=== PATIENT | male | born 1930 | race Caucasian/White ===

== ENCOUNTER 2016-07-18 13:09 | Emergency (ER) | payer MEDICAID, MEDICARE ==
[2016-07-18 13:12] VITALS: BP 141/53
--- NOTE | 2016-07-18 14:14 | EDM.PDOC ---
[id number] [facility] [place] [facility] Time Seen by Provider: 07/18/16 13:30 Source of Information: Reports: Patient, EMS, Provider History Limitations: Reports: No limitations - History of Present Illness INITIAL COMMENTS - FREE TEXT/NARRATIVE: 85-year-old male arrived by ambulance from the [facility] as he apparently had a hypoglycemic episode in the clinic. We have no other history because the clinic did not call. According to EMS the patient was stable in route, normal glucometers and no complaints. This is after he received some oral glucose at the clinic. I asked the patient why he was here and what we could do for him and he said "let him go home he's fine". Onset: unknown/unsure Associated Symptoms: Reports: denies other symptoms Left Hip Pain Score (Numeric/FACES): 2 - Related Data Allergies Allergy/AdvReac Type Severity Reaction Status Date / Time Penicillins Allergy Cannot Verified 07/18/16 13:10 Remember Home Meds: Home Meds Acetaminophen/oxyCODONE [Percocet 325-5 MG] 1 tab PO DAILY 07/18/16 [History] Albuterol/Ipratropium [Combivent Respimat] 1 puff INH QID 07/18/16 [History] Azithromycin [Azithromycin] 1 tab PO ASDIRECTED 07/18/16 [History] Digoxin [Digoxin] 125 mcg PO Q48H 07/18/16 [History] Docusate Sodium [Doc-Q-Lace] 100 mg PO DAILY 07/18/16 [History] Ethambutol HCl [Myambutol] 1,600 mg PO ASDIRECTED 07/18/16 [History] Folic Acid 1 mg PO DAILY 07/18/16 [History] Furosemide [Furosemide] 40 mg PO DAILY 07/18/16 [History] Gabapentin [Neurontin] 600 mg PO TID 07/18/16 [History] Insulin Detemir [Levemir] 45 units SUBCNJ BEDTIME 07/18/16 [History] Ketoconazole [Nizoral 2% Shampoo] 1 appful TOP Q4HR 07/18/16 [History] Levothyroxine Sodium [Synthroid] 75 mcg PO DAILY 07/18/16 [History] Liraglutide [Victoza] 1.2 mg SUBCNJ DAILY 07/18/16 [History] Polyethylene Glycol 3350 [MiraLAX] 17 g PO DAILY 07/18/16 [History] Ranitidine [Zantac] 150 mg PO BID 07/18/16 [History] Rifampin [Rifampin] 600 mg PO ASDIRECTED 07/18/16 [History] Sennosides [Senna] 8.6 mg PO ASDIRECTED 07/18/16 [History] Sertraline [Zoloft] 100 mg PO DAILY 07/18/16 [History] Simvastatin [Simvastatin] 40 mg PO DAILY 07/18/16 [History] Terazosin [Hytrin] 5 mg PO DAILY 07/18/16 [History] Warfarin Sodium [Jantoven] 5 mg PO ASDIRECTED 07/18/16 [History] Zolpidem [Ambien] 5 mg PO BEDTIME 07/18/16 [History] fentaNYL [Fentanyl] 50 mcg TOP Q72H 07/18/16 [History] metFORMIN [Glucophage] 500 mg PO BID 07/18/16 [History] traZODone 25 mg PO DAILY 07/18/16 [History] Past Medical History Cardiovascular History: Reports: Afib, Heart Failure, Other (see below) Other Cardiovascular History: abdominal arotic athrosclorosis. Arotic aneurysm Respiratory History: Reports: COPD, PE Gastrointestinal History: Reports: Chronic constipation Musculoskeletal History: Reports: Back pain, chronic Other Musculoskeletal History: chronic left hip pain. Neurological History: Reports: Other (see below) Other Neuro History: isomnia Endocrine/Metabolic History: Reports: Diabetes, type II Hematologic History: Reports: Iron deficiency, Other (see below) Other Hematologic History: folate deficiency Social & Family History - Tobacco Use Smoking Status *Q: Unknown Ever Smoked - Caffeine Use Caffeine Use: Reports: Coffee - Recreational Drug Use Recreational Drug Use: No ED ROS GENERAL - Review of Systems Review Of Systems: See Below Constitutional: Denies: fever, chills Respiratory: Denies: Shortness of Breath Cardiovascular: Denies: Chest pain GI/Abdominal: Denies: Abdominal pain, Nausea, Vomiting Neurological: Denies: Headache Psychiatric: Denies: Anxiety ED EXAM, GENERAL - Physical Exam Exam: See Below Exam Limited By: No limitations General Appearance: alert, no apparent distress Eye Exam: bilateral eye: EOMI Respiratory/Chest: no respiratory distress, lungs clear Cardiovascular: regular rate, rhythm GI/Abdominal: soft, non tender Neurological: alert, no motor/sensory deficits Psychiatric: normal affect, normal mood Skin Exam: Warm, Dry Course - Vital Signs Last Recorded V/S: Last Vital Signs Temp 97.7 F 07/18/16 13:14 Pulse 72 07/18/16 13:14 Resp 15 07/18/16 13:14 BP 141/53 H 07/18/16 13:14 Pulse Ox 99 07/18/16 13:14 - Orders/Labs/Meds Labs: Laboratory Tests 07/18/16 07/18/16 Range/Units 13:58 13:58 WBC 13.4 H (4.5-11.0) K/uL RBC 3.95 L (4.30-5.90) M/uL Hgb 12.3 (12.0-15.0) g/dL Hct 38.2 L (40.0-54.0) % MCV 97 (80-98) fL MCH 31 (27-31) pg MCHC 32 (32-36) % Plt Count 272 (150-400) K/uL Neut % (Auto) 73 H (36-66) % Lymph % (Auto) 16 L (24-44) % [place] % (Auto) 9 H (2-6) % Eos % (Auto) 1 L (2-4) % Baso % (Auto) 0 (0-1) % Sodium 138 L (140-148) mmol/L Potassium 4.1 (3.6-5.2) mmol/L Chloride 99 L (100-108) mmol/L Carbon Dioxide 28 (21-32) mmol/L Anion Gap 15.1 H (5.0-14.0) mmol/L BUN 23 H (7-18) mg/dL Creatinine 1.1 (0.8-1.3) mg/dL Est Cr Clr Drug Dosing 53.24 mL/min Estimated GFR (MDRD) > 60 (>60) Glucose 119 H (74-106) mg/dL Calcium 8.5 (8.5-10.1) mg/dL - Re-Assessments/Exams Free Text/Narrative Re-Assessment/Exam: 07/18/16 14:21 I called the clinic and spoke with the provider who sent him to the emergency room. Apparently when he arrived he was hypoglycemic but even after giving him glucose he remained hypotensive, pale, and she was concerned about his electrolytes and fluid status. 07/18/16 14:22 CBC and BMP were obtained and the patient was allowed to watch TV and he was monitored. 07/18/16 14:42 Labs were reassuring. Patient ate a meal while here and was comfortable and developed no recurring symptoms. He was discharged to return home without medication changes Departure - Departure Time of Disposition: 17:16 Disposition: DC/[facility] to [facility] Condition: good Clinical Impression: Hypoglycemia Instructions: Hypoglycemia, [id number] Referrals: PCP,None [Primary Care Provider] - Forms: ED Department Discharge Care Plan Goals: Resume regular medications without changes. Return or recheck if symptoms recur or you have other concerns.
== END 2016-07-18 17:16 ==
LOC: JP.ED 13:09
DX: E11.649 Type 2 diabetes mellitus with hypoglycemia without coma (principal); I48.91 Unspecified atrial fibrillation; I50.9 Heart failure, unspecified; J44.9 Chronic obstructive pulmonary disease, unspecified; Z79.4 Long term (current) use of insulin; Z79.84 Long term (current) use of oral hypoglycemic drugs; Z79.01 Long term (current) use of anticoagulants; Z79.899 Other long term (current) drug therapy; Z88.0 Allergy status to penicillin
CPT/HCPCS: 36415; 80048; 85025; 99283; 99285